=== PATIENT | female | born 1975 | race Caucasian/White ===

== ENCOUNTER 2017-12-04 18:09 | Emergency (ER) | payer BC ==
[~2017-12-04] VITALS: Ht 167.6 cm; Wt 72.1 kg
[2017-12-04] MEDS ORDERED: FAMOTIDINE 20 MG/2 ML VIAL IVP ONE (18:30)
[2017-12-04] MEDS ORDERED: KETOROLAC 30 MG/ML VIAL. IV ONE (18:30)
[2017-12-04] MEDS ORDERED: diphenhydrAMINE 50 MG/ML VIAL IVP ONE (18:30)
[2017-12-04] MEDS ORDERED: IV NORMAL SALINE 1000ML BAG 1,000 ML IV ONE (18:30)
[2017-12-04] MEDS ORDERED: ONDANSETRON PF 4 MG/2 ML VIAL. IV ONE (18:30)
--- NOTE | 2017-12-04 18:54 | PHYS DOC ---
Past Medical History Past Medical History: Hypertension, Migraines Past Surgical History: Other Additional Past Surgical Histo: sinus, elbow Alcohol Use: None Drug Use: None Adult General Chief Complaint Chief Complaint: HEADACHE HPI HPI Patient is a 42 year old female who presents with a migraine that started at 8: 00 this morning. Patient states that she took sumatriptan this morning and she vomited both times she tried to take it. Patient states that it usually works and helps her headaches. Patient states she gets one migraine a week but is not usually this bad. Patient states that she has nausea, vomiting and is very light sensitive. Patient rates her pain a 10 out of 10. Patient states it is the worst headache that she's ever had patient speaks in full sentences, has no numbness or tingling or weaknesses, denies chest pain or syncope. Patient states that a couple times a day when she sat up she got dizzy but states that she has not really drink anything or ate anything at all today. Patient denies any allergies and states her medications are ranitidine and amitriptyline. Patient states that her primary care provider is Dr. Mckeon at . Review of Systems Review of Systems Constitutional: Denies fever or chills [] Eyes: Denies change in visual acuity, redness, or eye pain. Light sensitivity [] HENT: Denies nasal congestion or sore throat [] Respiratory: Denies cough or shortness of breath [] Cardiovascular: No additional information not addressed in HPI [] GI: Denies abdominal pain. Nausea, Vomiting. Denies bloody stools or diarrhea [] : Denies dysuria or hematuria [] Musculoskeletal: Denies back pain or joint pain [] Integument: Denies rash or skin lesions [] Neurologic: Headache, Denies focal weakness or sensory changes [] Endocrine: Denies polyuria or polydipsia [] All other systems were reviewed and found to be within normal limits, except as documented in this note. Current Medications Current Medications Current Medications Medications (Trade) Dose Ordered Sig/Marcela Start Time Stop Time Status Last Admin Dose Admin Diphenhydramine HCl (Benadryl) 25 mg 1X ONCE 12/04/17 18:30 12/04/17 18:44 DC 12/04/17 19:08 25 MG Famotidine (Pepcid Vial) 20 mg 1X ONCE 12/04/17 18:30 12/04/17 18:44 DC 12/04/17 19:07 20 MG Ketorolac Tromethamine (Toradol 30mg Vial) 30 mg 1X ONCE 12/04/17 18:30 12/04/17 18:44 DC 12/04/17 19:07 30 MG Ondansetron HCl (Zofran) 4 mg 1X ONCE 12/04/17 18:30 12/04/17 18:44 DC 12/04/17 19:07 4 MG Prochlorperazine Edisylate (Compazine) 10 mg 1X ONCE 12/04/17 20:30 12/04/17 20:31 DC 12/04/17 20:57 10 MG Sodium Chloride 1,000 ml @ 1,000 mls/hr 1X ONCE 12/04/17 18:30 12/04/17 19:29 DC 12/04/17 19:15 1,000 MLS/HR Allergies Allergies Allergies Coded Allergies Type Severity Reaction Last Updated Verified No Known Drug Allergies 12/04/17 No Physical Exam Physical Exam Constitutional: Well developed, well nourished, no acute distress, non-toxic appearance. [] HENT: Normocephalic, atraumatic, bilateral external ears normal, oropharynx moist, no oral exudates, nose normal. [] Eyes: PERRLA, EOMI, conjunctiva normal, no discharge. Light sensitivity[] Neck: Normal range of motion, no tenderness, supple, no stridor. [] Cardiovascular:Heart rate regular rhythm, no murmur [] Lungs & Thorax: Bilateral breath sounds clear to auscultation [] Abdomen: Bowel sounds normal, soft, no tenderness, no masses, no pulsatile masses. [] Skin: Warm, dry, no erythema, no rash. [] Back: No tenderness, no CVA tenderness. [] Extremities: No tenderness, no cyanosis, no clubbing, ROM intact, no edema. [] Neurologic: Alert and oriented X 3, normal motor function, normal sensory function, no focal deficits noted. [] Psychologic: Affect normal, judgement normal, mood normal. [] Current Patient Data Vital Signs Vital Signs Date Time Temp Pulse Resp B/P (MAP) Pulse Ox O2 Delivery O2 Flow Rate FiO2 12/04/17 18:27 98.7 87 16 187/110 (135) 97 Room Air 98.7 Lab Values Laboratory Tests Test 12/04/17 18:40 12/04/17 19:50 POC Urine HCG, Qualitative Hcg negative (Negative) White Blood Count 7.3 x10^3/uL (4.0-11.0) Red Blood Count 4.67 x10^6/uL (3.50-5.40) Hemoglobin 13.8 g/dL (12.0-15.5) Hematocrit 40.3 % (36.0-47.0) Mean Corpuscular Volume 87 fL (79-100) Mean Corpuscular Hemoglobin 30 pg (25-35) Mean Corpuscular Hemoglobin Concent 34 g/dL (31-37) Red Cell Distribution Width 13.4 % (11.5-14.5) Platelet Count 242 x10^3/uL (140-400) Neutrophils (%) (Auto) 75 % (31-73) H Lymphocytes (%) (Auto) 18 % (24-48) L Monocytes (%) (Auto) 5 % (0-9) Eosinophils (%) (Auto) 1 % (0-3) Basophils (%) (Auto) 1 % (0-3) Neutrophils # (Auto) 5.5 x10^3uL (1.8-7.7) Lymphocytes # (Auto) 1.3 x10^3/uL (1.0-4.8) Monocytes # (Auto) 0.4 x10^3/uL (0.0-1.1) Eosinophils # (Auto) 0.1 x10^3/uL (0.0-0.7) Basophils # (Auto) 0.0 x10^3/uL (0.0-0.2) Sodium Level 143 mmol/L (136-145) Potassium Level 4.3 mmol/L (3.5-5.1) Chloride Level 107 mmol/L (98-107) Carbon Dioxide Level 31 mmol/L (21-32) Anion Gap 5 (6-14) L Blood Urea Nitrogen 13 mg/dL (7-20) Creatinine 0.7 mg/dL (0.6-1.0) Estimated GFR (Cockcroft-Gault) 91.8 Glucose Level 90 mg/dL (70-99) Calcium Level 9.4 mg/dL (8.5-10.1) Laboratory Tests 12/04/17 19:50 Laboratory Tests 12/04/17 19:50 EKG EKG [] Radiology/Procedures Radiology/Procedures CT Head Impressions: [facility] [address] [place], [place] [id number] IMAGING REPORT Signed PATIENT: NITIN SOARES ACCOUNT: [id number] : 1975 LOCATION: ER AGE: 42 SEX: F EXAM STATUS: PRE ER ORD. PHYSICIAN: DOM SNELL APRN REASON: headache PROCEDURE: CT HEAD WO CONTRAST CT Head W/O Contrast: History: headache started at 8:00am this morning; no trauma; no high blood pressure
no hx: seizures or strokes Comparison: none Axial images were obtained without contrast. The malcolm and white matter appears normal and symmetrical for the patients age. There is no mass effect, extraaxial fluid collections or hydrocephalus. There is no gross bleed. There is no focal loss of malcolm-white matter distinction to suggest acute ischemia, i.e. stroke. Impression: No acute findings. RS Compliance Statement: One or more of the following individualized dose reduction techniques were utilized for this examination: 1. Automated exposure control 2. Adjustment of the mA and/or kV according to patient size 3. Use of iterative reconstruction technique Electronically signed by: Edward Ro III, MD (12/04/2017 7:01 PM) [facility] DICTATED and SIGNED BY: EDWARD RO III, MD DATE: 12/04/17 439 Course & Med Decision Making Course & Med Decision Making Patient is a 42 year old female who presents with a migraine that started at 8: 00 this morning. Patient states that she took sumatriptan this morning and she vomited both times she tried to take it. Patient states that it usually works and helps her headaches. Patient states she gets one migraine a week but is not usually this bad. Patient states that she has nausea, vomiting and is very light sensitive. Patient rates her pain a 10 out of 10. Patient states it is the worst headache that she's ever had patient speaks in full sentences, has no numbness or tingling or weaknesses, denies chest pain or syncope. Patient states that a couple times a day when she sat up she got dizzy but states that she has not really drink anything or ate anything at all today. Patient denies any allergies and states her medications are ranitidine and amitriptyline. Patient states that her primary care provider is Dr. Mckeon at . Patient is alert and oriented. Patient has no weaknesses or sensation deficits. Pupils are equal and reactive. Abdomen is soft and nontender. Patient denies syncope. Patient denies any neck pain or stiffness. Patient is afebrile. Patient has no extremity edema and denies any chest pain or palpitations. Patient is in mandatory with a steady gait. Since patient states that this is the worse headache she's ever had I will CT her head in the ED today. Patient is receiving IV Toradol, Benadryl, Pepcid, Zofran and a 1 L bolus of normal saline. CT shows no acute findings. Patient is given a dose of Compazine to further help with her headache. Patient is reevaluated 30 minutes after Compazine is given and patient states that her headache is much better and is tolerable and rates her pain a 5 out of 10. Patient will be discharged home in stable condition. [] Dragon Disclaimer Dragon Disclaimer This electronic medical record was generated, in whole or in part, using a voice recognition dictation system. Departure Departure Impression: Primary Impression: Migraine Disposition: 01 HOME, SELF-CARE Condition: STABLE Patient Instructions: Migraine Headache Additional Instructions: Follow-up with her primary care doctor. Make sure to return to the ED if you black out, cannot keep urtication's are fluid down, began having numbness or weaknesses, or your headache becomes intractable. Scripts Ondansetron (ZOFRAN ODT) 4 Mg Tab.rapdis 1 TAB SL Q8HRS, #15 TAB Prov: DOM SNELL HOMICIDE DETECTIVE 12/04/17 Problem Qualifiers Primary Impression: Migraine Migraine type: unspecified Status migrainosus presence: without status migrainosus Intractability: not intractable Qualified Codes: G43.909 - Migraine, unspecified, not intractable, without status migrainosus DOM SNELL HOMICIDE DETECTIVE Dec 04, 2017 18:54
--- NOTE | 2017-12-04 19:05 | RAD ---
CT Head W/O Contrast: History: headache started at 8:00am this morning; no trauma; no high blood pressure
no hx: seizures or strokes Comparison: none Axial images were obtained without contrast. The malcolm and white matter appears normal and symmetrical for the patients age. There is no mass effect, extraaxial fluid collections or hydrocephalus. There is no gross bleed. There is no focal loss of malcolm-white matter distinction to suggest acute ischemia, i.e. stroke. Impression: No acute findings. RS Compliance Statement: One or more of the following individualized dose reduction techniques were utilized for this examination: 1. Automated exposure control 2. Adjustment of the mA and/or kV according to patient size 3. Use of iterative reconstruction technique Electronically signed by: Gallo Rosario III, MD (12/04/2017 7:01 PM) [facility]
[2017-12-04 19:57] LABS: BASO % 1 % (0-3); EOS # 0.1 x10^3/uL (0.0-0.7); EOS % 1 % (0-3); HEMATOCRIT 40.3 % (36.0-47.0); HEMOGLOBIN 13.8 g/dL (12.0-15.5); LYMPH # 1.3 x10^3/uL (1.0-4.8); LYMPH % 18 % (24-48); MEAN CORPUSCULAR HEMOGLOBIN 30 pg (25-35); MEAN CORPUSCULAR HGB CONC 34 g/dL (31-37); MEAN CORPUSCULAR VOLUME 87 fL (79-100); MONO # 0.4 x10^3/uL (0.0-1.1); MONO % 5 % (0-9); NEUT # 5.5 x10^3uL (1.8-7.7); NEUT % 75 % (31-73); PLATELET COUNT 242 x10^3/uL (140-400); RED BLOOD COUNT 4.67 x10^6/uL (3.50-5.40); RED CELL DISTRIBUTION WIDTH 13.4 % (11.5-14.5); WHITE BLOOD COUNT 7.3 x10^3/uL (4.0-11.0)
[2017-12-04 20:08] LABS: CALCIUM 9.4 mg/dL (8.5-10.1); CREATININE 0.7 mg/dL (0.6-1.0); GFR 91.8; POTASSIUM 4.3 mmol/L (3.5-5.1)
[2017-12-04] MEDS ORDERED: PROCHLORPERAZINE 10 MG/2 ML VIAL. IV ONE (20:30)
[2017-12-04 21:13] VITALS: BP 144/81
[2017-12-04] MEDS ORDERED: ONDA4TAB10 SL (21:25)
== END 2017-12-04 21:40 | disposition home or self-care (01) ==
LOC: ER 18:09
DX: G43.909 Migraine, unspecified, not intractable, without status migrainosus (principal); I10 Essential (primary) hypertension
CPT/HCPCS: 36415; 70450; 80048; 81025; 85025; 96361; 96374; 96375; 99285; J0780; J1200; J1885; J2405; J7030; S0028